=== PATIENT | female | born 1980 | race Caucasian/White ===

== ENCOUNTER 2016-07-06 15:04 | Emergency (ER) | payer SELFPAY ==
--- NOTE | 2016-07-06 15:39 | ER Document Report ---
ED Medical Screen (RME) - General Stated Complaint: JAW PAIN Notes: left lock blank snell had her mouth guard for 3 days for grinding I have greeted and performed a rapid initial assessment of this patient. A comprehensive ED assessment and evaluation of the patient, analysis of test results and completion of the medical decision making process will be conducted by additional ED providers. TRAVEL OUTSIDE OF THE [place] IN LAST 30 DAYS: No - Related Data Allergies/Adverse Reactions: benzonatate [From Tessalon Perles] Adverse Reaction (Verified 07/06/16 15:38) VOMITING ketorolac tromethamine [From Toradol] Adverse Reaction (Verified 07/06/16 15:38) Urticaria Past Medical History Renal/ Medical History: Reports: Hx Ovarian Cysts - pcos Musculoskeltal Medical History: Reports Hx Arthritis, Reports Hx Musculoskeletal Trauma Skin Medical History: Reports Hx MRSA Infectious Medical History: Reports: Hx MRSA Past Surgical History: Reports: Hx Oral Surgery, Hx Orthopedic Surgery - R knee - Immunizations Immunizations up to date: Yes Hx Diphtheria, Pertussis, Tetanus Vaccination: Yes - 2012
--- NOTE | 2016-07-06 16:32 | ER Document Report ---
ED General - General Chief Complaint: Jaw Pain Stated Complaint: JAW PAIN Mode of Arrival: Ambulatory Information source: Patient - This 36-year-old female presenting to the emergency room today stating that she had TMJ to the left side of the mandible she has retainer which she forgot in a hotel room in [place] they're sending her back to her but she is having exacerbation tightness to the left temporal mandibular joint. TRAVEL OUTSIDE OF THE [place] IN LAST 30 DAYS: No - Related Data Allergies/Adverse Reactions: benzonatate [From Tessalon Perles] Adverse Reaction (Verified 07/06/16 15:38) VOMITING ketorolac tromethamine [From Toradol] Adverse Reaction (Verified 07/06/16 15:38) Urticaria Past Medical History - General Information source: Patient - Social History Smoking Status: Unknown if Ever Smoked Chew tobacco use (# tins/day): No Frequency of alcohol use: None Drug Abuse: None Family History: Arthritis, CAD, CVA, DM, Hyperlipidemia, Hypertension, Malignancy Patient has suicidal ideation: No Patient has homicidal ideation: No Renal/ Medical History: Reports: Hx Ovarian Cysts - pcos. Denies: Hx Peritoneal Dialysis Musculoskeltal Medical History: Reports Hx Arthritis, Reports Hx Musculoskeletal Trauma Skin Medical History: Reports Hx MRSA Infectious Medical History: Reports: Hx MRSA Past Surgical History: Reports: Hx Oral Surgery, Hx Orthopedic Surgery - R knee - Immunizations Immunizations up to date: Yes Hx Diphtheria, Pertussis, Tetanus Vaccination: Yes - 2012 Review of Systems - Review of Systems Constitutional: No symptoms reported EENT: No symptoms reported, Mouth pain, Other - left TMJ psin Cardiovascular: No symptoms reported Respiratory: No symptoms reported Gastrointestinal: No symptoms reported Genitourinary: No symptoms reported Female Genitourinary: No symptoms reported Musculoskeletal: No symptoms reported Skin: No symptoms reported Hematologic/Lymphatic: No symptoms reported Neurological/Psychological: No symptoms reported Physical Exam - Vital signs Interpretation: Normal - General General appearance: Appears well, Alert - HEENT Head: Normocephalic, Atraumatic Eyes: Normal Pupils: PERRL Teeth diagram: 1 - left TMJ tightening - Respiratory Respiratory status: No respiratory distress Chest status: Nontender Breath sounds: Normal Chest palpation: Normal - Cardiovascular Rhythm: Regular Heart sounds: Normal auscultation Murmur: No - Abdominal Inspection: Normal Distension: No distension Bowel sounds: Normal Tenderness: Nontender Organomegaly: No organomegaly - Back Back: Normal, Nontender - Extremities General upper extremity: Normal inspection, Nontender, Normal color, Normal ROM , Normal temperature General lower extremity: Normal inspection, Nontender, Normal color, Normal ROM , Normal temperature, Normal weight bearing. No: Jose Angel's sign - Neurological Neuro grossly intact: Yes Cognition: Normal Orientation: AAOx4 Klaus Coma Scale Eye Opening: Spontaneous Klaus Coma Scale Verbal: Oriented Klaus Coma Scale Motor: Obeys Commands Klaus Coma Scale Total: 15 Speech: Normal Motor strength normal: LUE, RUE, LLE, RLE Sensory: Normal - Psychological Associated symptoms: Normal affect, Normal mood - Skin Skin Temperature: Warm Skin Moisture: Dry Skin Color: Normal Discharge - Discharge Clinical Impression: Sprain of left temporomandibular joint Disposition: HOME, SELF-CARE Additional Instructions: Left TMJ tightening. Must follow-up with ENT in 2-3 days. Follow-up with private doctor in 1 to 2 days for final radiology readings please return to the emergency room for any change worsening condition. Follow up with private M.D. for all other routine health care needs. Prescriptions: Tramadol HCl [Ultram 50 mg Tablet] 50 mg PO Q6HP PRN #40 tablet PRN Reason: Prednisone [Deltasone 20 mg Tablet] 3 tab PO DAILY 5 Days
[2016-07-06 17:19] VITALS: BP 145/102
== END 2016-07-06 17:19 | disposition home or self-care (01) ==
LOC: ER 15:04
DX: S03.42XA Sprain of jaw, left side, initial encounter (principal); X58.XXXA Exposure to other specified factors, initial encounter; Z86.14 Personal history of Methicillin resistant Staphylococcus aureus infection
CPT/HCPCS: 99283

== ENCOUNTER 2016-07-22 09:23 | Emergency (ER) | payer SELFPAY ==
--- NOTE | 2016-07-22 11:13 | ER Document Report ---
ED General - General Chief Complaint: Wrist Injury Stated Complaint: FALL WRIST PAIN Mode of Arrival: Ambulatory Notes: Patient is a 36-year-old white female who presents with left thumb and wrist pain that started yesterday after a fall from a horse. She denies any head injury or loss of consciousness. She states she landed on her outstretched left hand and left buttock. She tried applying ice and using ibuprofen (last dose 0400 this morning) which did not provide relief. She endorses associated swelling and ecchymosis but denies any numbness, tingling or deformity. TRAVEL OUTSIDE OF THE [place] IN LAST 30 DAYS: No - Related Data Allergies/Adverse Reactions: benzonatate [From Tessalon Perles] Adverse Reaction (Verified 07/22/16 10:26) VOMITING ketorolac tromethamine [From Toradol] Adverse Reaction (Verified 07/22/16 10:26) Urticaria Past Medical History - Social History Smoking Status: Never Smoker Chew tobacco use (# tins/day): No Frequency of alcohol use: None Drug Abuse: None Family History: Arthritis, CAD, CVA, DM, Hyperlipidemia, Hypertension, Malignancy Patient has suicidal ideation: No Patient has homicidal ideation: No Renal/ Medical History: Reports: Hx Ovarian Cysts - pcos. Denies: Hx Peritoneal Dialysis Musculoskeltal Medical History: Reports Hx Arthritis, Reports Hx Musculoskeletal Trauma Skin Medical History: Reports Hx MRSA Infectious Medical History: Reports: Hx MRSA Past Surgical History: Reports: Hx Oral Surgery, Hx Orthopedic Surgery - R knee - Immunizations Immunizations up to date: Yes Hx Diphtheria, Pertussis, Tetanus Vaccination: Yes - 2012 Review of Systems - Review of Systems Constitutional: No symptoms reported EENT: No symptoms reported Cardiovascular: No symptoms reported Respiratory: No symptoms reported Gastrointestinal: No symptoms reported Genitourinary: No symptoms reported Female Genitourinary: No symptoms reported Musculoskeletal: See HPI Skin: See HPI Hematologic/Lymphatic: No symptoms reported Neurological/Psychological: No symptoms reported Physical Exam - Vital signs Vitals: Temp Pulse Resp BP Pulse Ox 98.3 F 91 18 150/91 H 99 07/22/16 09:32 07/22/16 09:32 07/22/16 09:32 07/22/16 09:32 07/22/16 09:32 Interpretation: Hypertensive - But otherwise normal - Notes Notes: PHYSICAL EXAM: CONSTITUTIONAL: Alert and oriented, well-appearing and in no acute distress. HENT: Normocephalic, atraumatic. Moist mucous membranes. EYES: Pupils equal round and reactive to light, EOM intact. Sclera anicteric, conjunctiva are normal. No entrapment. NECK: supple without lymphadenopathy. No midline tenderness or paraspinous muscle spasms. No step-offs or deformities. ROM intact. HEART: Regular rate and rhythm without murmurs. LUNGS: CTAB and equal. No wheezes, rales or rhonchi. EXTREMITIES: Left hand - TTP at MCP joint of thumb with ROM limited in flexion/ extension secondary to pain. ROM intact of all other digits. No ecchymosis, erythema, swelling or deformity noted. No cyanosis. Cap Refill <3 seconds. NEURO: Cranial nerves grossly intact. Normal sensory/motor exams. SKIN: Warm and dry. Normal turgor. No rashes or lesions noted. Course - Re-evaluation Re-evalutation: 07/22/16 11:21 Patient seen and examined. No obvious deformities to left thumb/wrist - will obtain xrays and give PO pain medication. 07/22/16 12:30 Reviewed imaging studies - negative for acute fracture or dislocation. No bony abnormality. Discussed results with patient. Will give wrist splint and advised follow-up with orthopedics. Given script for pain medication. Discharged home in stable condition. - Vital Signs Vital signs: Temp Pulse Resp BP Pulse Ox 98.3 F 91 18 150/91 H 99 07/22/16 09:32 07/22/16 09:32 07/22/16 09:32 07/22/16 09:32 07/22/16 09:32 - Diagnostic Test Radiology reviewed: Image reviewed, Reports reviewed Procedures - Immobilization Left Wrist Pre-Proc Neuro Vasc Exam: Normal Immobilizer type: Cock-up Performed by: PCT Post-Proc Neuro Vasc Exam: Normal Alignment checked and good: Yes Discharge - Discharge Clinical Impression: Left wrist sprain Qualifiers: Encounter type: initial encounter Qualified Code(s): S63.502A - Unspecified sprain of left wrist, initial encounter Condition: Stable Disposition: HOME, SELF-CARE Additional Instructions: Oral Narcotic Medication You have been given a prescription for pain control. This medication is a narcotic. It's best taken with food, as nausea can result if taken on an empty stomach. Don't operate machinery or drive within six hours of taking this medication. Do not combine this medicine with alcohol, or with any medication which can cause sedation (such as cold tablets or sleeping pills) unless you get permission from the physician. Narcotics tend to cause constipation. If possible, drink plenty of fluids and eat a diet high in fiber and fruits. Temporary Splint A splint has been applied for protection. This is a temporary measure to allow the healing to begin. Once the area can be moved painfree, you can put the splint aside. As you begin to use the injured part, be careful not to put so much stress on it that it hurts. If routine use causes pain, put the splint back on! If you can't use the part without pain after several days' rest, or if the injury is not completely painfree within a week or two, please return for re- examination. If there is unexpected severe pain, numbness, discoloration, or swelling beyond the splint, you should call the doctor or return at once. Sprain Your injury is a sprain. A sprain results from stretching or tearing of the ligaments, usually from a twisting injury. The ligaments will require time and protection in order to heal properly. Many sprains are quite disabling and should be taken seriously. The usual initial treatment of sprains is cold packs, elevation, and rest of the injured area. Your physician has assessed the seriousness of your ligament injury, and has outlined a treatment plan. Understand that this treatment may change, depending on how you progress. If a re-examination was recommended, it is important that you follow up as instructed. Call the doctor any time if there is severe pain, numbness, or loss of function in the injured area. Return immediately for any new or worsening symptoms. Follow-up with primary care provider, call tomorrow to make followup appointment. Prescriptions: Tramadol HCl [Ultram] 50 mg PO Q8HP PRN #10 tablet PRN Reason: Forms: Elevated Blood Pressure
[2016-07-22] MEDS ORDERED: TRAMADOL HCL 50 MG TABLET PO ONE (11:17)
[2016-07-22 12:46] VITALS: BP 141/86
== END 2016-07-22 12:45 | disposition home or self-care (01) ==
LOC: ER 09:23
DX: S63.502A Unspecified sprain of left wrist, initial encounter (principal); V80.010A Animal-rider injured by fall from or being thrown from horse in noncollision accident, initial encounter
CPT/HCPCS: 99283; 73130; L3984

== ENCOUNTER 2016-08-18 12:48 | Emergency (ER) | payer SELFPAY ==
--- NOTE | 2016-08-18 13:31 | ER Document Report ---
ED Medical Screen (RME) - General Stated Complaint: TOOTH PAIN Time seen by provider: 13:29 Mode of Arrival: Ambulatory Information source: Patient TRAVEL OUTSIDE OF THE [place] IN LAST 30 DAYS: No - HPI Patient complains to provider of: TOOTHACHE Onset: Yesterday Onset/Duration: Sudden Context: BROKEN TOOTH, NOW WITH SWELLING AT GUMS. Quality of pain: Throbbing Severity: Moderate Pain Level: 4 Associated Symptoms: None Exacerbated by: Denies Relieved by: Denies Similar symptoms previously: Yes Recently seen / treated by doctor: No - Related Data Smoking: Non-smoker Frequency of alcohol use: None Drug Abuse: None Allergies/Adverse Reactions: benzonatate [From Tessalon Perles] Adverse Reaction (Verified 08/18/16 13:31) VOMITING ketorolac tromethamine [From Toradol] Adverse Reaction (Verified 08/18/16 13:31) Urticaria Past Medical History Renal/ Medical History: Reports: Hx Ovarian Cysts - pcos. Denies: Hx Peritoneal Dialysis Musculoskeltal Medical History: Reports Hx Arthritis, Reports Hx Musculoskeletal Trauma Skin Medical History: Reports Hx MRSA Infectious Medical History: Reports: Hx MRSA Past Surgical History: Reports: Hx Oral Surgery, Hx Orthopedic Surgery - R knee - Immunizations Immunizations up to date: Yes Hx Diphtheria, Pertussis, Tetanus Vaccination: Yes - 2012
[2016-08-18] MEDS ORDERED: OXYCODONE-ACETAMINOPHEN 5-325 MG TABLET PO ONE (15:09)
--- NOTE | 2016-08-18 15:10 | ER Document Report ---
ED General - General Chief Complaint: Toothache Stated Complaint: TOOTH PAIN Mode of Arrival: Ambulatory Information source: Patient Notes: Patient's a 36-year-old white female who presents with dental pain posterior molar on left side has been present since this morning. Pain had sudden onset, it is described as throbbing and rated as a 4 out of 5. She denies any fever, chills or drainage from the area. She tried the tramadol that she had at home but this did not provide any relief. She states she has known about the broken tooth there for several years and was told by her dentist that if she ever developed pain and she would have to see an oral surgeon for this. She states she has called her oral surgeon but will have to have $300 before she can see them. TRAVEL OUTSIDE OF THE [place] IN LAST 30 DAYS: No - Related Data Allergies/Adverse Reactions: benzonatate [From Tessalon Perles] Adverse Reaction (Verified 08/18/16 13:31) VOMITING ketorolac tromethamine [From Toradol] Adverse Reaction (Verified 08/18/16 13:31) Urticaria Past Medical History - General Information source: Patient - Social History Smoking Status: Unknown if Ever Smoked Chew tobacco use (# tins/day): No Frequency of alcohol use: None Drug Abuse: None Family History: Arthritis, CAD, CVA, DM, Hyperlipidemia, Hypertension, Malignancy Patient has suicidal ideation: No Patient has homicidal ideation: No Renal/ Medical History: Reports: Hx Ovarian Cysts - pcos. Denies: Hx Peritoneal Dialysis Musculoskeltal Medical History: Reports Hx Arthritis, Reports Hx Musculoskeletal Trauma Skin Medical History: Reports Hx MRSA Infectious Medical History: Reports: Hx MRSA Past Surgical History: Reports: Hx Oral Surgery, Hx Orthopedic Surgery - R knee - Immunizations Immunizations up to date: Yes Hx Diphtheria, Pertussis, Tetanus Vaccination: Yes - 2012 Review of Systems - Review of Systems Constitutional: See HPI EENT: See HPI Cardiovascular: No symptoms reported Respiratory: No symptoms reported Gastrointestinal: No symptoms reported Genitourinary: No symptoms reported Female Genitourinary: No symptoms reported Musculoskeletal: No symptoms reported Skin: No symptoms reported Hematologic/Lymphatic: No symptoms reported Neurological/Psychological: No symptoms reported Physical Exam - Notes Notes: PHYSICAL EXAM: CONSTITUTIONAL: Alert and oriented, well-appearing and in no acute distress. HENT: Normocephalic, atraumatic. Nares clear without erythema, septal hematoma or deviation, airway patent. Oropharynx clear without erythema, tonsilar exudate or malocclusion. Broken tooth #16 with mild gingival swelling but no area of fluctuance. Braces noted to bottom teeth. Trachea midline. Uvula midline. Moist mucous membranes. EYES: Pupils equal round and reactive to light, EOM intact. Sclera anicteric, conjunctiva are normal. No entrapment. NECK: supple without lymphadenopathy. ROM intact. HEART: Regular rate and rhythm without murmurs. LUNGS: CTAB and equal. No wheezes, rales or rhonchi. SKIN: Warm and dry. Normal turgor. No rashes or lesions noted. Course - Re-evaluation Re-evalutation: 08/18/16 15:09 Patient seen and examined. Broken tooth #16 without obvious evidence of cellulitis or abscess. Given by mouth narcotic pain medication here and discharged with prescription for antibiotic for empiric coverage and oral narcotic medication. Discharged home in stable condition and advised to follow- up with oral surgeon as soon as possible. Discharge - Discharge Clinical Impression: Tooth decay, Tooth fracture with loss of restorative material, Pain, dental Condition: Stable Disposition: HOME, SELF-CARE Additional Instructions: TOOTHACHE: Your pain is due to dental decay. The tooth must be repaired in order for you to feel better. You will, therefore, be referred to a dentist. We do not have dentists on the staff at [facility]. Severe swelling or drainage around a tooth usually means a dental abscess. This also requires evaluation and treatment by the dentist, but antibiotics may be prescribed while awaiting dental treatment. You should be rechecked immediately if you develop major swelling of the face, increasing pain, a lump in the jaw or gums, headache, difficulty swallowing, or fever. ORAL NARCOTIC MEDICATION: You have been given a prescription for pain control. This medication is a narcotic. It's best taken with food, as nausea can result if taken on an empty stomach. Don't operate machinery or drive within six hours of taking this medication. Do not combine this medicine with alcohol, or with any medication which can cause sedation (such as cold tablets or sleeping pills) unless you get permission from the physician. Narcotics tend to cause constipation. If possible, drink plenty of fluids and eat a diet high in fiber and fruits. Please be aware that prescription narcotics also have the potential for abuse. People become addicted to these medications because of the general sense of wellbeing that they induce. This feeling along with a significant reduction in tension, anxiety, and aggression provides a stimulating seductive quality to these drugs. Once your pain is under control, we encourage you to discard your unused narcotics. FOLLOW-UP CARE: You have been referred for follow-up care to the dentists listed below. Call the dentists office for an appointment as you were instructed or within the next two days. If you experience worsening or a significant change in your symptoms, notify the physician immediately or return to the Emergency Department at any time for re-evaluation. [facility] [address] [place], [place] Wednesday mornings, by appointment [facility] [address] [place] [address] [facility] [address] [facility] [address] [facility] [address] [email or web address] [address] [place] [address] Wednesday- 8:00am to 5:00 pm Will see patients from other [facility]. Charges based on income and family size and accepts Medicare, Medicaid, and Insurances Will pull molars [facility] [id number] Hours of Operation 8:00 am - 4:30 pm weekdays The following dental offices accept Medicaid: [facility] Dr. Eli Dr. Arceo Dr. Goldberg Dr. Anthony Domenico Henry Lutsavage, and [facility] oral surgery Dr. Bae ([place]) Dr. King ([place]) [facility] Drs. Alonzo and Stoney ([place]) Dr. Mendoza ([place]) [facility] Dr. Saunders ([place]) Drs. Gaytan and ([place]) Medicaid Care Line Prescriptions: Oxycodone HCl/Acetaminophen [Percocet 5-325 mg Tablet] 1 tab PO Q6HP PRN #10 tablet PRN Reason: Amox Tr/Potassium Clavulanate [Augmentin 875-125 Tablet] 1 tab PO BID 10 Days
[2016-08-18 15:24] VITALS: BP 141/95
== END 2016-08-18 15:25 | disposition home or self-care (01) ==
LOC: ER 12:48
DX: K02.9 Dental caries, unspecified (principal); K08.89 Other specified disorders of teeth and supporting structures; Z86.14 Personal history of Methicillin resistant Staphylococcus aureus infection
CPT/HCPCS: 99282

== ENCOUNTER 2016-08-26 12:55 | Emergency (ER) | payer SELFPAY ==
--- NOTE | 2016-08-26 13:05 | ER Document Report ---
ED Medical Screen (RME) - General Stated Complaint: RIGHT KNEE PAIN Notes: 36 yo female c/o right knee pain x 2 days. pain escalating. hx/o of arthritis in knee. denies trauma. feels familar to arthritis pain. aggrevated with movement and weight bearing. right knee no edema or echymosis, no warmth or erythema. + infrapatellar tenderness, no effusion TRAVEL OUTSIDE OF THE [place] IN LAST 30 DAYS: No - Related Data Allergies/Adverse Reactions: benzonatate [From Tessalon Perles] Adverse Reaction (Verified 08/18/16 13:31) VOMITING ketorolac tromethamine [From Toradol] Adverse Reaction (Verified 08/18/16 13:31) Urticaria Past Medical History Renal/ Medical History: Reports: Hx Ovarian Cysts - pcos. Denies: Hx Peritoneal Dialysis Musculoskeltal Medical History: Reports Hx Arthritis, Reports Hx Musculoskeletal Trauma Skin Medical History: Reports Hx MRSA Infectious Medical History: Reports: Hx MRSA Past Surgical History: Reports: Hx Oral Surgery, Hx Orthopedic Surgery - R knee - Immunizations Immunizations up to date: Yes Hx Diphtheria, Pertussis, Tetanus Vaccination: Yes - 2012 Physical Exam - Vital signs Vitals: Temp Pulse Resp BP Pulse Ox 98.0 F 95 16 141/87 H 100 08/26/16 12:59 08/26/16 12:59 08/26/16 12:59 08/26/16 12:59 08/26/16 12:59 Course - Vital Signs Vital signs: Temp Pulse Resp BP Pulse Ox 98.0 F 95 16 141/87 H 100 08/26/16 12:59 08/26/16 12:59 08/26/16 12:59 08/26/16 12:59 08/26/16 12:59
--- NOTE | 2016-08-26 14:17 | ER Document Report ---
ED General - General Chief Complaint: Knee Pain Stated Complaint: RIGHT KNEE PAIN Mode of Arrival: Ambulatory Information source: Patient Notes: Patient is 36 yo white female with PMHx of chronic pain, osteoarthritis who presents with 2 day history of right knee pain. Denies injury or fall. Pain worse with ambulation but is ambulatory at home. She reports history of pain problems associated with arthritis in this knee and has tried wearing a brace, ice, rest, ibuprofen, aleve which is not providing relief. She typically sees ortho for injections but stats she can't afford to go due to lack of medical insurance. Denies swelling, erythema, warmth, fever or chills. TRAVEL OUTSIDE OF THE [place] IN LAST 30 DAYS: No - Related Data Allergies/Adverse Reactions: benzonatate [From Tessalon Perles] Adverse Reaction (Verified 08/26/16 13:03) VOMITING ketorolac tromethamine [From Toradol] Adverse Reaction (Verified 08/26/16 13:03) Urticaria Past Medical History - Social History Smoking Status: Never Smoker Chew tobacco use (# tins/day): No Frequency of alcohol use: None Drug Abuse: None Family History: Arthritis, CAD, CVA, DM, Hyperlipidemia, Hypertension, Malignancy Patient has suicidal ideation: No Patient has homicidal ideation: No Renal/ Medical History: Reports: Hx Ovarian Cysts - pcos. Denies: Hx Peritoneal Dialysis Musculoskeltal Medical History: Reports Hx Arthritis, Reports Hx Musculoskeletal Trauma Skin Medical History: Reports Hx MRSA Infectious Medical History: Reports: Hx MRSA Past Surgical History: Reports: Hx Oral Surgery, Hx Orthopedic Surgery - R knee - Immunizations Immunizations up to date: Yes Hx Diphtheria, Pertussis, Tetanus Vaccination: Yes - 2012 Review of Systems - Review of Systems Constitutional: See HPI EENT: No symptoms reported Cardiovascular: No symptoms reported Respiratory: No symptoms reported Gastrointestinal: No symptoms reported Genitourinary: No symptoms reported Female Genitourinary: No symptoms reported Musculoskeletal: See HPI Skin: No symptoms reported Hematologic/Lymphatic: No symptoms reported Neurological/Psychological: No symptoms reported Physical Exam - Vital signs Vitals: Temp Pulse Resp BP Pulse Ox 98.0 F 95 16 141/87 H 100 08/26/16 12:59 08/26/16 12:59 08/26/16 12:59 08/26/16 12:59 08/26/16 12:59 Interpretation: Hypertensive - Notes Notes: PHYSICAL EXAM: CONSTITUTIONAL: Alert and oriented, well-appearing and in no acute distress. HENT: Normocephalic, atraumatic. Moist mucous membranes. HEART: Regular rate and rhythm without murmurs. LUNGS: CTAB and equal. No wheezes, rales or rhonchi. EXTREMITIES: Right knee - tender to palpation at infrapatellar space. No erythema, ecchymosis, warmth, effusion or edema. ROM intact, varus/valgus stress negative. Negative anterior/posterior drawer. No pitting edema. No cyanosis. Cap Refill <3 seconds. NEURO: Cranial nerves grossly intact. Normal sensory/motor exams. PSYCH: Normal mood, normal affect. SKIN: Warm and dry. Normal turgor. No rashes or lesions noted. Course - Re-evaluation Re-evalutation: 08/26/16 14:16 Patient seen and examined. With history of chronic pain/osteoarthritis, exam is consistent with flare of same. No evidence of cellulitis, compartment syndrome, or DVT on exam. Patient has been seen multiple times this year for pain complaints as well as numerous visits specifically for chronic right knee pain, requesting pain medication. Will treat osteoarthritis with steroids, NSAIDs and will advise that the emergency department does not treat chronic pain syndromes and she will need to follow-up with primary care doctor or establish with pain management. Discharged home in stable condition. - Vital Signs Vital signs: Temp Pulse Resp BP Pulse Ox 98.0 F 95 16 141/87 H 100 08/26/16 12:59 08/26/16 12:59 08/26/16 12:59 08/26/16 12:59 08/26/16 12:59 Discharge - Discharge Clinical Impression: Chronic pain of right knee Condition: Stable Disposition: HOME, SELF-CARE Additional Instructions: Anti-Inflammatory Medication You have received a prescription for an antiinflammatory agent. This is an excellent, safe drug for pain control. In addition, it has potent antiinflammatory effects which are beneficial, especially in the treatment of injuries, arthritis, or tendonitis. It's best to take this medicine with food. Persons with ulcer disease or allergy to aspirin should notify their physician of this before taking this drug. Take the medication exactly as prescribed. Don't take additional doses unless instructed to do so by your doctor. If you develop wheezing, shortness of breath, hives, faintness, stomach pain, vomiting, or dark black stools, return for re-evaluation at once. Osteoarthritis Your symptoms are due to osteoarthritis. Osteoarthritis is inflammation caused by "wear and tear" of the joints. There is no cure for osteoarthritis, but medicine can help the pain and stiffness. It's important to keep the joints moving. Move the joints through their full range daily. Light exercise helps, but if exercise hurts, switch to a non-impact exercise like swimming. Local warmth may help ease pain. Call or return if any joint becomes severely swollen or increasingly painful, or if you have fever or spreading redness. Chronic Pain Control Stress, inactivity, and depression make pain more severe regardless of the cause of the pain. Stress and poor physical condition can cause pain such as headaches and backache. Relaxation: Rest in a quiet place with your eyes closed for 20 minutes twice daily. Concentrate on a pleasant image, or simply "feel" your breathing. Clear your mind. Stress management: Deal with your "stressors." Either take action, or eliminate the stressor from your life. Don't let things hang over you. Accept those things you can't change. Nutrition: Eat small, balanced meals -- don't skip, don't overeat. Meals should be high-carbohydrate, low-sugar, low-fat. Exercise: Exercise helps painful conditions and eases stress. Get 30 minutes of moderate exercise, five days a week. Do an activity that does not flare your pain. Precautions: Pain which continues to disrupt daily activities, or which changes in nature, requires a medical evaluation. Pain Clinic referral is available. We do not manage chronic pain in the Emergency Department. We will try to appropriately help you through an acute flare of your chronic painful condition , but for on-going chronic pain that does not improve, you will need to see your private doctor or painter hand. We do not provide repeated medication management of chronic painful conditions. If you wish, we can provide the name of local pain management physicians. Prescriptions: Meloxicam [Mobic 15 mg Tablet] 15 mg PO DAILY #30 tablet Prednisone [Deltasone 10 mg Tablet] 10 mg PO ASDIR PRN #21 tablet PRN Reason: Forms: Elevated Blood Pressure
[2016-08-26 15:02] VITALS: BP 138/96
== END 2016-08-26 15:03 | disposition home or self-care (01) ==
LOC: ER 12:55
DX: G89.29 Other chronic pain (principal); M25.561 Pain in right knee
CPT/HCPCS: 99283

== ENCOUNTER 2016-12-19 15:10 | Emergency (ER) | payer SELFPAY ==
[2016-12-19 15:17] VITALS: BP 140/89
[2016-12-19] MEDS ORDERED: CLINDAMYCIN HCL 150 MG CAPSULE PO ONE (15:33)
[2016-12-19] MEDS ORDERED: BUPIVACAINE HCL 0.75% INJ/PF (7.5 MG/1 ML) 10 ML SDV INJ ONE (15:38)
[2016-12-19] MEDS ORDERED: LIDOCAINE 1% INJ-PF (10 MG/ML) 30 ML SDV INJ ONE (15:39)
--- NOTE | 2016-12-19 15:50 | ER Document Report ---
ED Oral Problem - General Mode of Arrival: Ambulatory Information source: Patient TRAVEL OUTSIDE OF THE [place] IN LAST 30 DAYS: No - HPI Patient complains to provider of: Swelling of jaw, Toothache Onset: Other - yesterday the pain started she toothe the brace off several weeks ago. face was swollen yesterday. Quality of pain: Sharp, Throbbing Severity: Severe Pain Level: 5 Context: Other - avulsion to tooth 21 several weeks ago Swollen jaw/face: Mild Associated symptoms: Facial pain, Jaw pain, Toothache Worsened by: Cold Relieved by: Nothing Similar symptoms previously: No Recently seen / treated by doctor/dentist: No <PRICE MCCRACKEN - Last Filed: 12/19/16 16:06> <ANETTE DIEGO - Last Filed: 12/19/16 19:15> - General Chief Complaint: Toothache Stated Complaint: MOUTH PAIN Time Seen by Provider: 12/19/16 15:24 Notes: 36-year-old female presents to ED for dental pain to the 21 tooth. she was trying to take her dental brace off with plier and she removed the front of the tooth. (PRICE MCCRACKEN) - Related Data Allergies/Adverse Reactions: benzonatate [From Tessalon Perles] Adverse Reaction (Verified 12/19/16 15:17) VOMITING ketorolac tromethamine [From Toradol] Adverse Reaction (Verified 12/19/16 15:17) Urticaria Past Medical History - General Information source: Patient - Social History Smoking Status: Unknown if Ever Smoked Cigarette use (# per day): No Chew tobacco use (# tins/day): No Smoking Education Provided: No Drug Abuse: None Family History: Arthritis, CAD, CVA, DM, Hyperlipidemia, Hypertension, Malignancy Patient has suicidal ideation: No Patient has homicidal ideation: No - Past Medical History Cardiac Medical History: Reports: None Pulmonary Medical History: Reports: None EENT Medical History: Reports: None Neurological Medical History: Reports: None Endocrine Medical History: Reports: None Renal/ Medical History: Reports: Hx Ovarian Cysts - pcos Malignancy Medical History: Reports: None GI Medical History: Reports: None Musculoskeltal Medical History: Reports Hx Arthritis, Reports Hx Musculoskeletal Trauma Skin Medical History: Reports Hx MRSA Psychiatric Medical History: Reports: None Traumatic Medical History: Reports: None Infectious Medical History: Reports: Hx MRSA Past Surgical History: Reports: Hx Oral Surgery, Hx Orthopedic Surgery - R knee - Immunizations Immunizations up to date: Yes Hx Diphtheria, Pertussis, Tetanus Vaccination: Yes - 2012 <PRICE MCCRACKEN - Last Filed: 12/19/16 16:06> Review of Systems - Review of Systems Constitutional: No symptoms reported EENT: Mouth pain, Dental problem Cardiovascular: No symptoms reported Respiratory: No symptoms reported Gastrointestinal: No symptoms reported Genitourinary: No symptoms reported Female Genitourinary: No symptoms reported Musculoskeletal: No symptoms reported Skin: No symptoms reported Hematologic/Lymphatic: No symptoms reported Neurological/Psychological: No symptoms reported -: Yes All other systems reviewed and negative <PRICE MCCRACKEN - Last Filed: 12/19/16 16:06> Physical Exam - Vital signs Interpretation: Normal - General General appearance: Appears well, Alert - HEENT Head: Normocephalic, Atraumatic Eyes: Normal Pupils: PERRL Ears: Normal External canal: Normal Tympanic membrane: Normal Sinus: Normal Nasal: Normal Mouth/Lips: Caries Mucous membranes: Normal Teeth diagram: 1 - avulsion to the front of the tooth with cavity Pharynx: Normal Neck: Normal - Respiratory Respiratory status: No respiratory distress Chest status: Nontender Breath sounds: Normal Chest palpation: Normal - Cardiovascular Rhythm: Regular Heart sounds: Normal auscultation Murmur: No - Abdominal Inspection: Normal Distension: No distension Bowel sounds: Normal Tenderness: Nontender Organomegaly: No organomegaly - Back Back: Normal, Nontender - Extremities General upper extremity: Normal inspection, Nontender, Normal color, Normal ROM , Normal temperature General lower extremity: Normal inspection, Nontender, Normal color, Normal ROM , Normal temperature, Normal weight bearing. No: Jose Angel's sign - Neurological Neuro grossly intact: Yes Cognition: Normal Orientation: AAOx4 Klaus Coma Scale Eye Opening: Spontaneous Klaus Coma Scale Verbal: Oriented Taylor Coma Scale Motor: Obeys Commands Klaus Coma Scale Total: 15 Speech: Normal Motor strength normal: LUE, RUE, LLE, RLE Sensory: Normal - Psychological Associated symptoms: Normal affect, Normal mood - Skin Skin Temperature: Warm Skin Moisture: Dry Skin Color: Normal <PRICE MCCRACKEN - Last Filed: 12/19/16 16:06> Course <PRICE MCCRACKEN - Last Filed: 12/19/16 16:06> <ANETTE DIEGO - Last Filed: 12/19/16 19:15> - Re-evaluation Re-evalutation: 12/19/16 16:[address] Diego to do a dental block for tooth #21 dental pain. Patient treated with clindamycin for the infection to the gum. Will be given a prescription for Tessalon Perles to use as they anesthetic for the tooth but not to swallow. 12/19/16 19:04 Patient left before she received her an antibiotic prescription and her Tessalon Perles prescription. Written discharge instructions. She was given verbal discharge instructions before she decided to leave. Nursing staff said that she told them that she was going to get her but she never came back. The nurse stated that she attempted to call her and she did not answer. ( PRICE MCCRACKEN) 12/19/16 19:15 I did see and examine this patient in conjunction with Jeannine Mccracken nurse practitioner, I did perform a dental block on 221 for the fracture of tooth 21, this fracture did have been when she used pliers to rip off her braces. Pain was completely relieved after the dental block. The fracture was easily visualized, no signs of infection. (ANETTE DIEGO) - Vital Signs Vital signs: Temp Pulse Resp BP Pulse Ox 98.9 F 123 H 16 140/89 H 100 12/19/16 15:16 12/19/16 15:16 12/19/16 15:16 12/19/16 15:16 12/19/16 15:16 Procedures - Additional Procedures dental block Additional Procedures: Other - dental block <ANETTE DIEGO - Last Filed: 12/19/16 19:15> - Additional Procedures dental block Notes: 12/19/16 19:14 regional block ofthe mental nerve, left side for dental pain after fracturing the tooth. used 3 mL 50-50 mixture of 1% lidocaine and 0.75% bupivacaine injected in a local manner around the mental nerve, tolerated well good relief of pain. No complications. (ANETTE DIEGO) Discharge <PRICE MCCRACKEN - Last Filed: 12/19/16 16:06> <ANETTE DIEGO - Last Filed: 12/19/16 19:15> - Discharge Clinical Impression: Pain, dental Condition: Stable Disposition: HOME, SELF-CARE Additional Instructions: TOOTHACHE: Your pain is due to dental decay. The tooth must be repaired in order for you to feel better. You will, therefore, be referred to a dentist. We do not have dentists on the staff at [facility]. Severe swelling or drainage around a tooth usually means a dental abscess. This also requires evaluation and treatment by the dentist, but antibiotics may be prescribed while awaiting dental treatment. You should be rechecked immediately if you develop major swelling of the face, increasing pain, a lump in the jaw or gums, headache, difficulty swallowing, or fever. CLINDAMYCIN: You have been given a prescription for the antibiotic clindamycin. It is often prescribed for infections in the mouth, such as dental infections or abscesses, and for skin infections due to MRSA. It's important that you take all the medication, unless instructed otherwise by your physician. Failure to complete the entire course can result in relapse of your condition. Common side effects of antibiotics include nausea, intestinal cramping, or diarrhea. Women may develop vaginal yeast infections, and babies can get yeast (thrush) in the mouth following the use of antibiotics. Contact your physician if you develop significant side effects from this medication. Allergy to this antibiotic can result in hives, wheezing, faintness, or itching. If symptoms of allergy occur, stop the medication and call the doctor. Tessalon Perles You have received a prescription for Tessalon Perles (benzonatate). This is a non-narcotic medicine for relief of cough. It usually works in about 15- 20 minutes and lasts around four hours. Tessalon Perles should be swallowed. They should not be chewed or dissolved in the mouth (this can produce temporary numbing of the mouth and choking can occur). If you develop any adverse effects such as wheezing, shortness of breath, hives, rash, itching, or lightheadedness, please return at once. FOLLOW-UP CARE: You have been referred for follow-up care to the dentists listed below. Call the dentists office for an appointment as you were instructed or within the next two days. If you experience worsening or a significant change in your symptoms, notify the physician immediately or return to the Emergency Department at any time for re-evaluation. [facility] [address], [place] L[place] mornings, by appointment [facility] [address] [place] [address] [facility]ly [facility] [place] [address] [facility] [address] [facility] [address] [email or web address] [address] [place] [address] Wednesday- 8:00am to 5:00 pm Will see patients from other [facility]. Charges based on income and family size and accepts Medicare, Medicaid, and Insurances Will pull molars [facility] [address] Hours of Operation 8:00 am - 4:30 pm weekdays The following dental offices accept Medicaid: [facility] Dr. Eli Dr. Arceo Dr. Goldberg Dr. Anthony Domenico Henry Lutsavage, and [facility] Dr. Bae ([place]) Dr. King ([place]) [facility] Drs. Alonzo and Stoney ([place]) Dr. Mendoza ([place]) [facility] Dr. Saunders ([place]) Drs. Gaytan and ([place]) Medicaid Care Line Prescriptions: Benzonatate [Tessalon Perle 100 mg Capsule] 100 mg PO Q8HP PRN #14 cap PRN Reason: Clindamycin HCl 300 mg PO QID 10 Days Forms: Elevated Blood Pressure
== END 2016-12-19 17:04 | disposition home or self-care (01) ==
LOC: ER 15:10
PROC: 3E0T3CZ (ICD-10-PCS; principal; 2016-12-19)
DX: K08.9 Disorder of teeth and supporting structures, unspecified (principal); R22.0 Localized swelling, mass and lump, head; Z86.14 Personal history of Methicillin resistant Staphylococcus aureus infection
CPT/HCPCS: 99282; 64400; J3490 ×2